=== PATIENT | male | born 1980 | race Caucasian/White ===

== ENCOUNTER 2017-06-20 13:44 | Observation (INO) | payer OTHER ==
[~2017-06-20] VITALS: Ht 177.8 cm; Wt 107.5 kg
--- NOTE | 2017-06-20 14:28 | EMERGENCY ROOM VISIT NOTE ---
History First contact with patient: 14:13 Chief Complaint: HAND PAIN/INJURY Stated Complaint: LEFT HAND INJURY/PAIN-WORK RELATED INJURY History of Present Illness The patient is a 36 year old male who presents to the Emergency Room with complaints of an injury to his left hand that he sustained yesterday at work. 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 He reports that the hardboard grinder was clean. He accidentally cut his left hand over the MCP joint. He washed it, applied bacitracin and then glued the wound shut. The patient noticed some redness and swelling last night. He also reports some tingling. His symptoms have gotten progressively worse and are now spreading up to the wrist. He denies any fever or chills. The patient's tetanus shot is up-to-date. He was seen at [facility]. Imaging was reportedly done. There is concern for gas in the wound. Review of Systems 6 system review performed and negative unless noted in HPI or below Past Medical/Surgical History Medical Problems: (1) Cellulitis of left hand Asthma Family History No known family medical history Social History Smoking Status: Former Smoker Alcohol Use: occasionally Occupation Status: employed Current/Historical Medications No Active Prescriptions or Reported Meds Physical Exam Vital Signs Date Time Temp Pulse Resp B/P (MAP) Pulse Ox O2 Delivery O2 Flow Rate FiO2 06/20/17 17:37 78 20 134/89 100 Room Air 06/20/17 15:41 70 14 134/89 98 Room Air 06/20/17 14:00 36.8 78 18 137/96 97 Room Air Physical Exam VITALS: Vitals are noted on the nurse's note and reviewed by myself. Vital signs stable. GENERAL: 36-year-old male, in no acute distress, nondiaphoretic, well-developed well-nourished. SKIN: There is a 1 cm superficial laceration to the left second MCP joint. There is some purulent drainage noted. Full flexion and extension of the left second digit. Crepitus noted to the dorsum of the hand. Erythema and edema extending to the wrist. No erythematous streaking up the arm. HEAD: Normocephalic atraumatic. MUSCULOSKELETAL: Left upper extremity as noted above. Strength 5/5 throughout. NEURO: Patient was alert and oriented to person place and time. Normal sensation to touch. No focal neurological deficits. Medical Decision & Procedures ER Provider Diagnostic Interpretation: forearm xray Patient Name: LORRI ROD Unit Number: [id number] Dictated: 06/20/171823 Transcribed: 06/20/171823 JA Printed Date/Time: [~ rep prt dt]/[~ rep prt tm] [~ rep ct labl] - [~ rep ct ivnm] [facility] [place] [place] [address] Dictated: 06/20/171823 Transcribed: 06/20/171823 JA Printed Date/Time: [~ rep prt dt]/[~ rep prt tm] [~ rep ct labl] - [~ rep ct ivnm] 1. Soft tissue gas of the dorsal aspect of the left hand extending into the distal left forearm, as shown on prior CT. No soft tissue gas within the proximal left forearm. While this gas could be related to the laceration, the findings are worrisome for a gas-forming infectious process with necrotizing fasciitis. 2. No evidence of osteomyelitis with the left radius or ulna. Electronically signed by: Lázaro Christensen M.D. 06/20/2017 6:31 PM Dictated Date/Time: 06/20/2017 6:24 PM The status of this report is Signed. Draft = Not yet reviewed or approved by Radiologist. Signed = Reviewed and approved by Radiologist. <AttendingPhy></AttendingPhy> <FamilyPhy>No Doctor, Assigned</FamilyPhy> < PrimaryPhy>No Doctor, Assigned</PrimaryPhy> <UnitNumber>[id number]</UnitNumber> <VisitNumber>[id number]</VisitNumber> <PatientName>LORRI ROD</ PatientName> <DateOfBirth>1980</DateOfBirth> <Location>[facility]</Location> < ServiceDate>06/20/17</ServiceDate> <MNE>ESINDI</MNE> <OrderingPhy>Damaris Montenegro P.A.-C.</OrderingPhy> <OrderingPhyMNE>f rep ord dr campos</OrderingPhyMNE> < DictatingPhyMNE>f rep dict dr campos</DictatingPhyMNE> <CCListMNE>f rep ct mne</ CCListMNE> <AdmittingPhyMNE>f pt admit dr campos</AdmittingPhyMNE> <AttendingPhyMNE >f pt attend dr campos</AttendingPhyMNE> <ConsultingPhyMNE>f pt consult dr campos</ConsultingPhyMNE> <FamilyPhyMNE>f pt fam dr campos</FamilyPhyMNE> <OtherPhyMNE>f pt other dr campos</OtherPhyMNE> < PrimaryPhyMNE>f pt prim care dr campos</PrimaryPhyMNE> <ReferringPhyMNE>f pt referring dr campos</ReferringPhyMNE> CT upper extremity IMPRESSION: Extensive soft tissue gas primary along the dorsum of the hand which extends from the wrist through the proximal third and fourth fingers. There is also a small focus of gas along the volar aspect of the fourth MCP joint. No loculated fluid collections to suggest an abscess. No areas of osteomyelitis identified. This gas is greater than expected for a laceration and therefore concerning for an infection from a gas forming organism (necrotizing fasciitis). Findings were discussed the patient's physician fiscal assistant, Evelyn Hernadez, at 4:15 PM on 06/20/2017. Electronically signed by: Reed Calderon M.D. 06/20/2017 4:15 PM Dictated Date/Time: 06/20/2017 4:01 PM The status of this report is Signed. Draft = Not yet reviewed or approved by Radiologist. Signed = Reviewed and approved by Radiologist. <AttendingPhy></AttendingPhy> <FamilyPhy>No Doctor, Assigned</FamilyPhy> < PrimaryPhy>No Doctor, Assigned</PrimaryPhy> <UnitNumber>[id number]</UnitNumber> <VisitNumber>[id number]</VisitNumber> <PatientName>LORRI ROD</ PatientName> <DateOfBirth>1980</DateOfBirth> <Location>[facility]</Location> < ServiceDate>06/20/17</ServiceDate> <MNE>ESINDI</MNE> <OrderingPhy>Evelyn Hernadez PA-C</OrderingPhy> <OrderingPhyMNE>f rep ord dr campos</OrderingPhyMNE> < DictatingPhyMNE>f rep dict dr campos</DictatingPhyMNE> <CCListMNE>f rep ct mne</ CCListMNE> <AdmittingPhyMNE>f pt admit dr campos</AdmittingPhyMNE> <AttendingPhyMNE >f pt attend dr campos</AttendingPhyMNE> <ConsultingPhyMNE>f pt consult dr campos</ConsultingPhyMNE> <FamilyPhyMNE>f pt fam dr campos</FamilyPhyMNE> <OtherPhyMNE>f pt other dr campos</OtherPhyMNE> < PrimaryPhyMNE>f pt prim care dr campos</PrimaryPhyMNE> <ReferringPhyMNE>f pt referring dr campos</ReferringPhyMNE> Laboratory Results Test 06/20/17 14:30 Immature Granulocyte % (Auto) 0.1 % White Blood Count 8.26 K/uL (4.8-10.8) Red Blood Count 5.11 M/uL (4.7-6.1) Hemoglobin 15.3 g/dL (14.0-18.0) Hematocrit 43.9 % (42-52) Mean Corpuscular Volume 85.9 fL (80-100) Mean Corpuscular Hemoglobin 29.9 pg (25-34) Mean Corpuscular Hemoglobin Concent 34.9 g/dl (32-36) Platelet Count 213 K/uL (130-400) Mean Platelet Volume 10.1 fL (7.4-10.4) Neutrophils (%) (Auto) 70.0 % Lymphocytes (%) (Auto) 20.8 % Monocytes (%) (Auto) 8.4 % Eosinophils (%) (Auto) 0.6 % Basophils (%) (Auto) 0.1 % Neutrophils # (Auto) 5.78 K/uL (1.4-6.5) Lymphocytes # (Auto) 1.72 K/uL (1.2-3.4) Monocytes # (Auto) 0.69 K/uL (0.11-0.59) Eosinophils # (Auto) 0.05 K/uL (0-0.5) Basophils # (Auto) 0.01 K/uL (0-0.2) Immature Granulocyte # (Auto) 0.01 K/uL (0.00-0.02) Medications Administered Medications (Trade) Dose Ordered Sig/Jazz Route Start Time Stop Time Status Last Admin Dose Admin Vancomycin HCl 1000 mg/Sodium Chloride 270 ml @ 125 mls/hr NOW STAT IV 06/20/17 14:43 06/20/17 16:52 DC 06/20/17 16:45 125 MLS/HR Clindamycin Phosphate 900 mg/ Dextrose 106 ml @ 100 mls/hr ONE ONCE IV 06/20/17 14:45 06/20/17 15:48 DC 06/20/17 15:57 100 MLS/HR ED Course Patient was seen and examined Vital signs including blood pressure were reviewed medications list was verified with patient Labs were obtained, and a saline lock was established The patient was given vancomycin and clindamycin. The case was discussed with my supervising physician who is in agreement with the plan. I spoke with Dr. Montenegro from orthopedics. His physician fiscal assistant, Bashir, evaluated the patient. The patient was also seen by Dr. Montenegro. The patient was also seen and evaluated by my supervising physician who is in agreement with my plan. Dr. Montenegro did not have any further treatment at this time. The patient was also seen and evaluated by the [facility] hospitalist group. They agree to observe the patient overnight for close monitoring and continued IV antibiotics. This was discussed with the patient. He is in agreement. Medical Decision Differential diagnosis: Wound infection, cellulitis, abscess, tenosynovitis, osteomyelitis This patient is a 36-year-old male that presents to the emergency department with complaints of left hand swelling, pain and redness after sustaining an injury at work yesterday. The laceration sustained to the hand was fairly insignificant. It was less than 1 inch in diameter. It was located over the second MCP joint. The patient was first evaluated at [facility]. Plain films were performed concerning for subcutaneous gas. I ordered blood work and a CT scan here in the emergency department. There is no leukocytosis. The imaging however is very concerning for subcutaneous emphysema extending proximally towards the wrist and over towards the fourth metacarpal. I am highly suspicious of necrotizing fasciitis. This was discussed at length with the radiologist in addition to orthopedics. The decision was made to observe the patient overnight. He will continue IV antibiotics. He will also undergo an infectious disease consult in the morning. If this does indeed progress, he will likely need surgical intervention. This was discussed with the patient. He is comfortable with the treatment plan. This chart was completed in part utilizing [employer] Speech Voice Recognition software. Attempts were made to minimize the grammatical errors, random word insertions, pronoun errors and incomplete sentences. Any formal questions or concerns about the content, text or information contained within the body of this dictation should be directly addressed to the provider for clarification. Medication Reconcilliation Current Medication List: was personally reviewed by me Blood Pressure Screening Patient's blood pressure: Elevated blood pressure Blood pressure disposition: Did not require urgent referral Consults Consulting Physician: Dr. Montenegro-orthopedics, Dr. Cummings [facility] hospitalist Impression Primary Impression: Cellulitis of left hand Critical Care I have personally spent greater than 30 minutes of critical care time in the direct management of this patient. This includes bedside care, interpretation of diagnostic studies, and testing, discussion with consultants, patient, and family members, and other required patient management activities. This 30 minutes is in excess of all separately billable procedures. Departure Information Prescriptions No Active Prescriptions or Reported Meds Referrals No Doctor, Assigned (PCP) Patient Instructions My [facility]
[2017-06-20] MEDS ORDERED: VANCOMYCIN INJ 1,000 MG in SODIUM CHLORIDE 0.9% 250ML 250 ML IV STA (14:43)
[2017-06-20] MEDS ORDERED: CLINDAMYCIN IV 900 MG in DEXTROSE 5% 100ML 100 ML IV ONE (14:45)
[2017-06-20 14:53] LABS: BASO % 0.1 %; BASO ABS # 0.01 K/uL (0-0.2); COMPLETE YES; EOS % 0.6 %; HEMATOCRIT 43.9 % (42-52); IG% 0.1 %; LYMPH % 20.8 %; LYMPH ABS # 1.72 K/uL (1.2-3.4); MEAN CELL VOLUME 85.9 fL (80-100); MEAN CORPUSCULAR HEMOGLOBIN 29.9 pg (25-34); MEAN CORPUSCULAR HGB CONC 34.9 g/dl (32-36); MEAN PLATELET VOLUME 10.1 fL (7.4-10.4); MONO % 8.4 %; PLATELET COUNT 213 K/uL (130-400); RED BLOOD COUNT 5.11 M/uL (4.7-6.1); WHITE BLOOD COUNT 8.26 K/uL (4.8-10.8)
[2017-06-20 15:10] LABS: BUN/CREATININE RATIO 14.9 (10-20); CALCIUM 10.2 mg/dl (8.5-10.1); CREATININE 1.18 mg/dl (0.60-1.40); POTASSIUM 3.8 mmol/L (3.5-5.1)
--- NOTE | 2017-06-20 16:16 | DIAGNOSTIC IMAGING REPORT ---
LEFT HAND CT WITH INTRAVENOUS CONTRAST CLINICAL HISTORY: L hand swelling cut on 2nd MCP joint COMPARISON STUDY: None. FINDINGS: Extensive soft tissue gas along the dorsum of the hand which extends along the proximal third and fourth fingers as well as into the dorsum of the wrist. Focal area of subcutaneous edema at the dorsum of the second MCP joint which favors the site of laceration. Tiny focus of gas along the volar aspect of the fourth MCP joint. No loculated fluid collections to suggest an abscess at this time. No areas of cortical destruction to suggest osteomyelitis. No fracture or dislocation within the hand. Gas also surrounds the dorsal tendons sheaths. IMPRESSION: Extensive soft tissue gas primary along the dorsum of the hand which extends from the wrist through the proximal third and fourth fingers. There is also a small focus of gas along the volar aspect of the fourth MCP joint. No loculated fluid collections to suggest an abscess. No areas of osteomyelitis identified. This gas is greater than expected for a laceration and therefore concerning for an infection from a gas forming organism (necrotizing fasciitis). Findings were discussed the patient's physician financial assistant, Evelyn Henradez, at 4:15 PM on 06/20/2017. Electronically signed by: Reed Calderon M.D. 06/20/2017 4:15 PM Dictated Date/Time: 06/20/2017 4:01 PM
--- NOTE | 2017-06-20 17:55 | EMERGENCY ROOM VISIT NOTE ---
ED Visit Note First contact with patient: 14:13 Patient seen and examined at bedside with physician cafeteria assistant. Patient with crepitus covered almost the entire dorsum of his left hand. Laceration noted at the dorsal aspect of the first MCP. Patient with slightly decreased range of motion along the 2nd/3rd digit secondary to pain, no decreased range of motion of the wrist or elbow. No other pain, crepitus, or edema noted of the patient's forearm. Discussed labs with the physician cafeteria assistant as well as need for IV antibiotics and admission. Physician cafeteria assistant has spoken with [facility] call, Dr. Montenegro, as well as with the hospitalist for admission for close monitoring. I do not suspect a flexor tenosynovitis, concern for worsening infection despite lack of over erythema or cellulitis on the dorsal aspect, most concerning is the extension of the crepitus over the dorsum of the hand, and patient's subjective altered sensation to the forearm ipsilaterally. Please refer to the physician cafeteria assistant note for her conversation with orthopedics. They advised her they will be down to evaluate the patient in the emergency room.
[2017-06-20] MEDS ORDERED: ONDANSETRON INJ 2 MG/ML 2 ML VIAL IV PRN (18:15)
[2017-06-20] MEDS ORDERED: ACETAMINOPHEN 325 MG TAB PO PRN (18:15)
--- NOTE | 2017-06-20 18:32 | DIAGNOSTIC IMAGING REPORT ---
L FOREARM 2 VIEWS ROUTINE CLINICAL HISTORY: Evaluate for necrotizing fasciitis. COMPARISON: CT of the left hand June 20, 2017 at 4:08 PM. FINDINGS: There is soft tissue gas along the distal medial shaft of the left ulna and dorsal aspect of the left hand. Similar findings were shown on CT from earlier today. There is no soft tissue gas within the proximal to mid left forearm. No evidence of osteomyelitis is identified within the left radius or ulna. There is no evidence for left elbow joint effusion. IMPRESSION: 1. Soft tissue gas of the dorsal aspect of the left hand extending into the distal left forearm, as shown on prior CT. No soft tissue gas within the proximal left forearm. While this gas could be related to the laceration, the findings are worrisome for a gas-forming infectious process with necrotizing fasciitis. 2. No evidence of osteomyelitis with the left radius or ulna. Electronically signed by: Lázaro Christensen M.D. 06/20/2017 6:31 PM Dictated Date/Time: 06/20/2017 6:24 PM
--- NOTE | 2017-06-20 18:58 | History and Physical ---
History & Physical Date & Time of Service: Jun 20, 2017 at 18:21 Chief Complaint: Left Hand Injury/Pain-Work Related Injury Primary Care Physician: No Doctor, Assigned History of Present Illness Source: patient, hospital records This is a 36yo M with no known PMH who presents with a L hand injury sustained at work yesterday. 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 He then applied bacitracin and glued wound shut. This morning, patient noticed worsening redness, swelling and some purulent drainage. Patient cleaned the wound and went to work. Received a tdap immunization. Later in the day, started to have more significant pain with flexion of his fingers and decided to come to ER for evaluation. Describes pain as a tight pulling sensation and states that it feels like there is a "jelly packet" inside the dorsum of his hand. Endorses a crackling sound with movement. Denies any numbness/tingling of L hand or fingers. Denies any fever, chills, headache, CP, SOB, abd pain, nausea, vomiting, LE swelling. Family History Family history is non-contributory. Social History Smoking Status: Former Smoker Alcohol Use: socially (endorses 2-3 drinks a week) Housing status: lives with family Occupational Status: employed Allergies Coded Allergies: Aspirin (Unverified Allergy, Severe, ., 06/20/17) Penicillins (Unverified Allergy, Severe, "ALLERGIC REACTION", 06/20/17) Home Medications No Active Prescriptions or Reported Meds Review of Systems Ten systems reviewed and negative except as noted in the HPI. Physical Exam Vital Signs Date Time Temp Pulse Resp B/P (MAP) Pulse Ox O2 Delivery O2 Flow Rate FiO2 06/20/17 17:37 78 20 134/89 100 Room Air 06/20/17 15:41 70 14 134/89 98 Room Air 06/20/17 14:00 36.8 78 18 137/96 97 Room Air General Appearance: WD/WN, no apparent distress Head: normocephalic, atraumatic Eyes: normal inspection, PERRL, sclerae normal (conjunctiva normal ) ENT: normal ENT inspection, hearing grossly normal, pharynx normal (moist mucous membranes ) Neck: supple, thyroid normal, trachea midline Respiratory/Chest: chest non-tender, lungs clear, normal breath sounds, no respiratory distress, no accessory muscle use Cardiovascular: regular rate, rhythm, no murmur, normal peripheral pulses Abdomen/GI: non tender, soft, no organomegaly Back: normal inspection Extremities/Musculoskelatal: no calf tenderness, no pedal edema, + pertinent finding (Dorsum of L hand with erythema and edema. Presence of a 2cm laceration without purulent drainage. TTP along 2nd-3rd MCP with associated crepitus. Sensation and motor function intact. ) Neurologic/Psych: no motor/sensory deficits, alert, normal mood/affect, oriented x 3 Skin: normal color, warm/dry Diagnostics Laboratory Results Results Past 24 Hours Test 06/20/17 14:30 Range/Units White Blood Count 8.26 4.8-10.8 K/uL Red Blood Count 5.11 4.7-6.1 M/uL Hemoglobin 15.3 14.0-18.0 g/dL Hematocrit 43.9 42-52 % Mean Corpuscular Volume 85.9 80-100 fL Mean Corpuscular Hemoglobin 29.9 25-34 pg Mean Corpuscular Hemoglobin Concent 34.9 32-36 g/dl Platelet Count 213 130-400 K/uL Mean Platelet Volume 10.1 7.4-10.4 fL Neutrophils (%) (Auto) 70.0 % Lymphocytes (%) (Auto) 20.8 % Monocytes (%) (Auto) 8.4 % Eosinophils (%) (Auto) 0.6 % Basophils (%) (Auto) 0.1 % Neutrophils # (Auto) 5.78 1.4-6.5 K/uL Lymphocytes # (Auto) 1.72 1.2-3.4 K/uL Monocytes # (Auto) 0.69 0.11-0.59 K/uL Eosinophils # (Auto) 0.05 0-0.5 K/uL Basophils # (Auto) 0.01 0-0.2 K/uL RDW Standard Deviation 40.1 36.4-46.3 fL RDW Coefficient of Variation 12.7 11.5-14.5 % Immature Granulocyte % (Auto) 0.1 % Immature Granulocyte # (Auto) 0.01 0.00-0.02 K/uL Sodium Level 138 136-145 mmol/L Potassium Level 3.8 3.5-5.1 mmol/L Chloride Level 104 98-107 mmol/L Carbon Dioxide Level 31 21-32 mmol/L Anion Gap 3.0 3-11 mmol/L Blood Urea Nitrogen 18 7-18 mg/dl Creatinine 1.18 0.60-1.40 mg/dl Est Creatinine Clear Calc Drug Dose 105.2 ml/min Estimated GFR () 90.8 Estimated GFR (Non- 78.4 BUN/Creatinine Ratio 14.9 10-20 Random Glucose 112 70-99 mg/dl Calcium Level 10.2 8.5-10.1 mg/dl Microbiology Results 06/20/17 Blood Culture, Received Pending 06/20/17 Blood Culture, Received Pending Diagnostic Radiology Left hand CT: IMPRESSION: Extensive soft tissue gas primary along the dorsum of the hand which extends from the wrist through the proximal third and fourth fingers. There is also a small focus of gas along the volar aspect of the fourth MCP joint. No loculated fluid collections to suggest an abscess. No areas of osteomyelitis identified. This gas is greater than expected for a laceration and therefore concerning for an infection from a gas forming organism (necrotizing fasciitis). Impression Assessment and Plan This is a 36yo M with no known PMH who presents with a L hand injury sustained at work yesterday. Left hand cellulitis -Warmth, swelling, crepitus -Concern for necrotizing fasciitis -Left hand CT with extensive soft tissue gas primarily along dorsum of the hand extending from wrist through the proximal third and fourth fingers. No loculated fluid collection to suggest abscess, no osteomyelitis -IV vanc and clinda initiated in ER. Will continue -Possible PCN allergy but is unsure of the reaction -Ortho consulted to assess the need for surgical intervention -NPO for now -ID consulted for tomorrow DVT Ppx: Rayshawn ripmanjeet Code status: FULL PCP: None. Would like to establish with [facility] Dispo: [facility] observation status for now. Plan to return home once medically stable Patient seen in collaboration with Dr. Cummings. Please see addendum. 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 On imaging: Extensive soft tissue gas along the dorsum of the hand which extends along the proximal third and fourth fingers as well as into the dorsum of the wrist. Focal area of subcutaneous edema at the dorsum of the second MCP joint which favors the site of laceration. Tiny focus of gas along the volar aspect of the fourth MCP joint.Soft tissue gas of the dorsal aspect of the left hand extending into the distal left forearm Blood cultures drawn in the ED Patient receiving IV Vancomycin and Clindamycin As per orthopedics evaluation, orthopedic service recommend discharge home with oral antibiotics, Augmentin However given radiographic impressions of soft tissue gas, will have patient observed overnight and continue IV antibiotics. Patient to be reassessed tomorrow before planning for discharge Level of Care Med/Surg Resuscitation Status FULL RESUSCITATION VTE Prophylaxis VTE Risk Assessment Done? Y/N: Yes Risk Level: Low Given or contraindicated: Annalisa Lovett Social Service Consult None Apply
--- NOTE | 2017-06-20 19:06 | Orthopedic Consultation ---
Orthopedic Consultation Date of Consultation: Jun 20, 2017. Attending Physician: Reason for Consultation: Left hand laceration History of Present Illness Trev is a 36y/o male, RHD, who suffered a laceration yesterday from a newly opened blade for a precision grinder external. He washed it out, applied some antibiotic ointment, and glued it with gorilla glue. This morning he noticed some discomfort and swelling with his hand, also had a pressure feeling into his forearm. He was seen [facility] where he had xrays and was referred to the ER. A ct scan was obtained of his hand showing soft tissue gas and we were consulted for further orthopedic evaluation. He has some dorsal hand pain. No pain in his arm at this time. No fever/chills. Does not feel ill. He did receive a dose of IV antibiotics. No other complaints. PMH, including medications, allergies, family, social history was reviewed and please refer to [facility] Past Medical/Surgical History asthma Social History Smoking Status: Former Smoker Occupation Status: employed Allergies Coded Allergies: Aspirin (Unverified Allergy, Severe, ., 06/20/17) Penicillins (Unverified Allergy, Severe, "ALLERGIC REACTION", 06/20/17) Home Medications No Active Prescriptions or Reported Meds Current Inpatient Medications Current Inpatient Medications Medications (Trade) Dose Ordered Sig/Jazz Route Start Time Stop Time Status Last Admin Dose Admin Miscellaneous Information (Pharmacy Consult) 1 ea NOW STAT N/A 06/20/17 18:06 06/20/17 18:07 UNV Acetaminophen (Tylenol Tab) 650 mg Q4H PRN PO 06/20/17 18:15 07/20/17 18:14 Ondansetron HCl (Zofran Inj) 4 mg Q6H PRN IV 06/20/17 18:15 07/20/17 18:14 Physical Exam Date Time Temp Pulse Resp B/P (MAP) Pulse Ox O2 Delivery O2 Flow Rate FiO2 06/20/17 17:37 78 20 134/89 100 Room Air 06/20/17 15:41 70 14 134/89 98 Room Air 06/20/17 14:00 36.8 78 18 137/96 97 Room Air He is a well developed well nourished male in no distress. He has a laceration on the dorsal aspect of his hand over the 2nd mcp joint, measuring approx 1.5 cm in length. Slight bloody drainage but no pus. Some dorsal hand swelling and crepitation. No redness or streaking. He has no tenderness of his forearm. He is able to flex/ext his fingers appropriately. extensor tendon is intact. NVI. CT was reviewed which demonstrates some soft tissue gas dorsally in the hand Laboratory Results Last 24 Hours Test 06/20/17 14:30 White Blood Count 8.26 K/uL Red Blood Count 5.11 M/uL Hemoglobin 15.3 g/dL Hematocrit 43.9 % Mean Corpuscular Volume 85.9 fL Mean Corpuscular Hemoglobin 29.9 pg Mean Corpuscular Hemoglobin Concent 34.9 g/dl Platelet Count 213 K/uL Mean Platelet Volume 10.1 fL Neutrophils (%) (Auto) 70.0 % Lymphocytes (%) (Auto) 20.8 % Monocytes (%) (Auto) 8.4 % Eosinophils (%) (Auto) 0.6 % Basophils (%) (Auto) 0.1 % Neutrophils # (Auto) 5.78 K/uL Lymphocytes # (Auto) 1.72 K/uL Monocytes # (Auto) 0.69 K/uL Eosinophils # (Auto) 0.05 K/uL Basophils # (Auto) 0.01 K/uL RDW Standard Deviation 40.1 fL RDW Coefficient of Variation 12.7 % Immature Granulocyte % (Auto) 0.1 % Immature Granulocyte # (Auto) 0.01 K/uL Sodium Level 138 mmol/L Potassium Level 3.8 mmol/L Chloride Level 104 mmol/L Carbon Dioxide Level 31 mmol/L Anion Gap 3.0 mmol/L Blood Urea Nitrogen 18 mg/dl Creatinine 1.18 mg/dl Est Creatinine Clear Calc Drug Dose 105.2 ml/min Estimated GFR () 90.8 Estimated GFR (Non- 78.4 BUN/Creatinine Ratio 14.9 Random Glucose 112 mg/dl Calcium Level 10.2 mg/dl Assessment & Plan Assessment: Left hand laceration Plan: He was seen and examined by Dr. Montenegro today as well. There was concern on the ct scan of necrotizing fascitis. Clinically his hand does not appear concerning at this point in time. Also, there was no air in the mcp joint. He has this laceration and some swelling, but no pus. It does not appear to be deep into the mcp joint. He received a dose of IV antibiotics in the ED. We recommended discharge home with oral antibiotics, augmentin. As well as soaking his wound 3 times a day. We did tell him in the future not to super glue his wounds. Certainly he should come back to the ER for worsening symptoms, increased redness, pain, swelling, or pus. He can follow up with orthopedics as needed as a outpatient.
[2017-06-20 20:18] LABS: HEMATOCRIT 41.2 % (42-52); MEAN CELL VOLUME 85.8 fL (80-100); MEAN CORPUSCULAR HEMOGLOBIN 29.8 pg (25-34); MEAN CORPUSCULAR HGB CONC 34.7 g/dl (32-36); MEAN PLATELET VOLUME 10.3 fL (7.4-10.4); PLATELET COUNT 189 K/uL (130-400); WHITE BLOOD COUNT 7.64 K/uL (4.8-10.8)
[2017-06-20 20:34] LABS: BUN/CREATININE RATIO 15.8 (10-20); CALCIUM 9.8 mg/dl (8.5-10.1); POTASSIUM 3.6 mmol/L (3.5-5.1)
[2017-06-20] MEDS ORDERED: IV FLUIDS COMPLETED PRN (20:45)
[2017-06-20 21:15] VITALS: BP 134/88; PULSE 74; TEMP 36.8; O2SAT 98; Ht 177.8 cm; Wt 107.5 kg
[2017-06-20] MEDS ORDERED: CLINDAMYCIN CONSULT ACTIVE PRN ×2 (21:19)
[2017-06-20] MEDS ORDERED: VANCOMYCIN CONSULT ACTIVE PRN (21:30)
[2017-06-20 22:42] VITALS: BP 147/90; PULSE 66; TEMP 36.7; O2SAT 97
[2017-06-21] MEDS: CLINDAMYCIN IV 900 MG in DEXTROSE 5% 50ML 44 ML IV SCH ×4 (00:14→23:41)
--- NOTE | 2017-06-21 00:15 | ORTHOPEDIC CONSULTATION ---
DATE OF CONSULTATION: 06/20/2017 ADDENDUM This is an addendum to an orthopedic consultation done by ZACH De La Cruz. I saw Mr. Chi with Jarred Henderson, my PA, today. In short, this is a 36-year-old gentleman who sustained a laceration to his left hand, just proximal to the MP joint, yesterday, a little over 24 hours ago. He washed it up and put some Gorilla Glu on it. He has had some increased pain and presented to the ER. They got a CT scan which showed some air in the soft tissues. His exam is very benign. He has got some mild swelling. He has got full range of motion and there is no redness. There is some mild swelling but that is it. There is also some slight crepitance to the tissues. No real warmth. No signs of even cellulitis. There is a slight bit of serous drainage. On CT scan, there is a small amount of air in the tissues proximal to the laceration. There are no signs of air in the joint itself to suggest a contamination of the MP joint. Based on his exam, I would have never ordered a CT scan in the first place. This is a very benign appearing laceration and I do not think there is any concern for severe infection or necrotizing fasciitis. We will give him some antibiotics, and if things get worse, he will need to follow up. I do not think he needs to be admitted to the hospital to be observed. Once again, his exam is very benign in appearance and I do not think this warrants admission and observation. Certainly, if things get worse, he should return for repeat evaluation. ADEN
--- NOTE | 2017-06-21 00:19 | Pharmacy Progress Note ---
Pharmacy Antibiotic Consult Date of Service: Jun 21, 2017. Pharmacy Dosing Scope * Pharmacy is consulted to initiate Vanocmycin IV dosing therapy, order appropriate labs and adjust drug dose/frequency. Subjective * The patient is a 36 year old male admitted on Jun 20, 2017 at 18:06. Objective Height (Feet): 5 Height (Inches): 10.00 Weight (Kilograms): 107.500 Lab Results (24hrs): Test 06/20/17 14:30 06/20/17 20:06 White Blood Count 8.26 K/uL (4.8-10.8) 7.64 K/uL (4.8-10.8) Red Blood Count 5.11 M/uL (4.7-6.1) 4.80 M/uL (4.7-6.1) Hemoglobin 15.3 g/dL (14.0-18.0) 14.3 g/dL (14.0-18.0) Hematocrit 43.9 % (42-52) 41.2 % (42-52) Mean Corpuscular Volume 85.9 fL (80-100) 85.8 fL (80-100) Mean Corpuscular Hemoglobin 29.9 pg (25-34) 29.8 pg (25-34) Mean Corpuscular Hemoglobin Concent 34.9 g/dl (32-36) 34.7 g/dl (32-36) Platelet Count 213 K/uL (130-400) 189 K/uL (130-400) Mean Platelet Volume 10.1 fL (7.4-10.4) 10.3 fL (7.4-10.4) Neutrophils (%) (Auto) 70.0 % Lymphocytes (%) (Auto) 20.8 % Monocytes (%) (Auto) 8.4 % Eosinophils (%) (Auto) 0.6 % Basophils (%) (Auto) 0.1 % Neutrophils # (Auto) 5.78 K/uL (1.4-6.5) Lymphocytes # (Auto) 1.72 K/uL (1.2-3.4) Monocytes # (Auto) 0.69 K/uL (0.11-0.59) Eosinophils # (Auto) 0.05 K/uL (0-0.5) Basophils # (Auto) 0.01 K/uL (0-0.2) RDW Standard Deviation 40.1 fL (36.4-46.3) 39.7 fL (36.4-46.3) RDW Coefficient of Variation 12.7 % (11.5-14.5) 12.7 % (11.5-14.5) Immature Granulocyte % (Auto) 0.1 % Immature Granulocyte # (Auto) 0.01 K/uL (0.00-0.02) Sodium Level 138 mmol/L (136-145) 138 mmol/L (136-145) Potassium Level 3.8 mmol/L (3.5-5.1) 3.6 mmol/L (3.5-5.1) Chloride Level 104 mmol/L (98-107) 104 mmol/L (98-107) Carbon Dioxide Level 31 mmol/L (21-32) 25 mmol/L (21-32) Anion Gap 3.0 mmol/L (3-11) 9.0 mmol/L (3-11) Blood Urea Nitrogen 18 mg/dl (7-18) 16 mg/dl (7-18) Creatinine 1.18 mg/dl (0.60-1.40) 1.00 mg/dl (0.60-1.40) Est Creatinine Clear Calc Drug Dose 105.2 ml/min 124.2 ml/min Estimated GFR () 90.8 110.9 Estimated GFR (Non- 78.4 95.7 BUN/Creatinine Ratio 14.9 (10-20) 15.8 (10-20) Random Glucose 112 mg/dl (70-99) 88 mg/dl (70-99) Calcium Level 10.2 mg/dl (8.5-10.1) 9.8 mg/dl (8.5-10.1) Micro Results: * Blood cultures are pending Recent Pertinent Medications * Pt is also receiving Cleocin 900mg IV every 8 hours. Assessment & Plan * Pt is a 36 y/o male admitted S/P left hand injury, being treated for cellulitis with Vanco and Cleocin IV. * He received Vanco 1gm IV while in the ED (~9.3mg/kg), will continue Vanco at 1750mg (~16.2mg/kg) IV every 8 hours. * Goal peak level estimate: between 30-40 mcg/mL. * Goal trough level estimate: between 16-19 mcg/mL. * Trough level is ordered for 06/21/17 at 1730 just prior to the 4th dose.. Pharmacy will continue to follow and will adjust dose/frequency as necessary. Thank you
[2017-06-21] MEDS: VANCOMYCIN INJ 1,750 MG in SODIUM CHLORIDE 0.9% 500ML 500 ML IV SCH ×3 (01:58→18:43)
[2017-06-21 07:41] VITALS: BP 140/84; PULSE 68; TEMP 36.7; O2SAT 97
--- NOTE | 2017-06-21 08:09 | PROGRESS NOTE ---
DATE: 06/21/2017 SUBJECTIVE: This is a followup of his left hand laceration and possible infection. The patient is a 36-year-old gentleman who was admitted last evening through the ER for left hand cellulitis with concerns of necrotizing fasciitis. Symptoms are pretty much unchanged. Feels like his hands are little bit more sore this morning than it was. Denies any fevers. No other complaints. OBJECTIVE: VITAL SIGNS: Temperature is 36.7. Vital signs stable. EXTREMITIES: Left hand reveals about 1.5 cm transverse laceration near the MP joint of his index finger. He can fully extend and flex his finger, but it is slightly painful. He does have some mild swelling and maybe just a little bit redness in this area. There is a scab over the area. There is no pus expressible or visible. I do not detect any crepitance in his soft tissues. LABORATORY DATA: White cell count normal at 7.64. I did order a sed rate and C-reactive protein this morning. ASSESSMENT: A 36-year-old male with left hand laceration with may be a mild low level cellulitis. There are no signs of necrotizing fasciitis in this gentleman. The area was CT scanned and it is a little difficult for me to interpret, but I cannot appreciate any on exam today. It does seem a little bit more swollen today but nothing too concerning. There is no pus or indication for surgical treatment. There are no signs of joint involvement over the laceration clinically. PLAN: This patient has been admitted to the hospital by the medicine service. I had recommended outpatient treatment as I do not think he needed IV management. There are no signs of necrotizing fasciitis in my opinion. We will check a sed rate and C-reactive protein. I am going to put him on some Toradol for the swelling and discomfort, I think that will help him markedly. I would recommend continued antibiotics. I think oral antibiotics would probably be adequate for this gentleman, although he does have a PENICILLIN allergy, which makes it little bit more difficult. We will start him on some soaks 10 minutes 3 times a day and any orthopedic questions can be directed to me at [phone]. I will follow him while he is in the hospital. I think this is something that can be managed as an outpatient and if things get worse, he could come back. I would recommend probably clindamycin and Bactrim if he is discharged. Once again orthopedic questions can be directed to me at [phone].
[2017-06-21] MEDS: KETOROLAC TROMETHAMINE 30 MG/ML VIAL IV. SCH ×3 (08:17→20:14)
--- NOTE | 2017-06-21 10:25 | Progress Note ---
Medicine Progress Note Date & Time of Visit: Jun 21, 2017 at 10:19. Subjective seen resting in bedside chair, comfortable states his left hand feels a little more sore than yesterday wrist pain has resolved, no arm pain can move all fingers normally no fever/chills denies headache, nausea, dizziness, chest pain, dyspnea, palpitations no other symptoms Objective Last 8 Hrs Date Time Temp Pulse Resp B/P (MAP) Pulse Ox O2 Delivery O2 Flow Rate FiO2 06/21/17 07:41 36.7 68 18 140/84 (102) 97 Room Air Physical Exam: General- oriented x 3, not in distress Head- atraumatic Eyes- EOMI, anicteric ENT- oropharynx clear Neck- supple, no JVD, no adenopathy Lungs- clear breath sounds bilaterally, no rales/wheezes Heart- regular rhythm; no murmur, normal rate Abdomen- normal bowel sounds, soft, nontender Extremities- Left Hand: (+) ~1cm wound on the 2nd MTP, scabbed, with surrounding mild edema, erythema, warmth, tenderness medial 1/2 of the hand dorsum, full ROM of fingers, wrist forearm normal no pretibial edema, no calf tenderness; peripheral pulses intact Neuro- alert, oriented x 3;no gross focal deficits Skin- warm & dry Laboratory Results: Last 24 Hours Test 06/20/17 14:30 06/20/17 20:06 06/21/17 07:42 White Blood Count 8.26 K/uL 7.64 K/uL Red Blood Count 5.11 M/uL 4.80 M/uL Hemoglobin 15.3 g/dL 14.3 g/dL Hematocrit 43.9 % 41.2 % Mean Corpuscular Volume 85.9 fL 85.8 fL Mean Corpuscular Hemoglobin 29.9 pg 29.8 pg Mean Corpuscular Hemoglobin Concent 34.9 g/dl 34.7 g/dl Platelet Count 213 K/uL 189 K/uL Mean Platelet Volume 10.1 fL 10.3 fL Neutrophils (%) (Auto) 70.0 % Lymphocytes (%) (Auto) 20.8 % Monocytes (%) (Auto) 8.4 % Eosinophils (%) (Auto) 0.6 % Basophils (%) (Auto) 0.1 % Neutrophils # (Auto) 5.78 K/uL Lymphocytes # (Auto) 1.72 K/uL Monocytes # (Auto) 0.69 K/uL Eosinophils # (Auto) 0.05 K/uL Basophils # (Auto) 0.01 K/uL RDW Standard Deviation 40.1 fL 39.7 fL RDW Coefficient of Variation 12.7 % 12.7 % Immature Granulocyte % (Auto) 0.1 % Immature Granulocyte # (Auto) 0.01 K/uL Sodium Level 138 mmol/L 138 mmol/L Potassium Level 3.8 mmol/L 3.6 mmol/L Chloride Level 104 mmol/L 104 mmol/L Carbon Dioxide Level 31 mmol/L 25 mmol/L Anion Gap 3.0 mmol/L 9.0 mmol/L Blood Urea Nitrogen 18 mg/dl 16 mg/dl Creatinine 1.18 mg/dl 1.00 mg/dl Est Creatinine Clear Calc Drug Dose 105.2 ml/min 124.2 ml/min Estimated GFR () 90.8 110.9 Estimated GFR (Non- 78.4 95.7 BUN/Creatinine Ratio 14.9 15.8 Random Glucose 112 mg/dl 88 mg/dl Calcium Level 10.2 mg/dl 9.8 mg/dl Erythrocyte Sedimentation Rate 9 mm/hr C-Reactive Protein < 0.29 mg/dl Date/Time Source Procedure Growth Status 06/20/17 15:17 Blood Blood Culture Pending Received 06/20/17 15:11 Blood Blood Culture Pending Received Assessment & Plan LEFT HAND CELLULITIS, 2ND MTP WOUND - CT of the extremity: possible necrotizing fasciitis - Dr. Montenegro- Ortho consulted impression is hand cellulitis, necrotizing fasciitis unlikely - afebrile CBC pending ESR, CRP normal Blood culture pending - hand is a little more "sore" today add Aztreonam IV continue Vanco + Clinda Day 2 monitor closely - Toradol PRN for pain - appreciate Dr. Montenegro's recommendations DVT Proph ambulation encouraged , SCDs Full Code Disposition anticipate d/c tomorrow if left hand improves further Current Inpatient Medications: Current Inpatient Medications Medications (Trade) Dose Ordered Sig/Jazz Route Start Time Stop Time Status Last Admin Dose Admin Clindamycin Phosphate (Consult) 1 ea DAILY PRN N/A 06/20/17 21:19 07/20/17 21:18 Acetaminophen (Tylenol Tab) 650 mg Q4H PRN PO 06/20/17 18:15 07/20/17 18:14 Ondansetron HCl (Zofran Inj) 4 mg Q6H PRN IV 06/20/17 18:15 07/20/17 18:14 Miscellaneous (Iv Fluids Completed) 1 ea PRN PRN N/A 06/20/17 20:45 06/20/18 20:44 Clindamycin Phosphate 900 mg/ Dextrose 50 ml @ 100 mls/hr Q8H IV 06/21/17 00:00 07/01/17 00:00 06/21/17 08:17 100 MLS/HR Vancomycin HCl 1750 mg/Sodium Chloride 535 ml @ 200 mls/hr Q8H IV 06/21/17 02:00 07/01/17 01:59 06/21/17 09:11 200 MLS/HR Vancomycin HCl (Consult) 1 ea UD PRN N/A 06/20/17 21:30 07/20/17 21:29 Ketorolac Tromethamine (Toradol Inj) 30 mg Q6H IV. 06/21/17 08:00 06/26/17 07:59 06/21/17 08:17 30 MG
[2017-06-21] MEDS: SODIUM CHLORIDE 0.9% 1000ML 1,000 ML IV SCH (10:30)
[2017-06-21] MEDS ORDERED: AZTREONAM CONSULT ACTIVE PRN ×2 (10:38)
[2017-06-21 11:09] LABS: BASO % 0.2 %; BASO ABS # 0.01 K/uL (0-0.2); COMPLETE YES; EOS % 0.8 %; HEMATOCRIT 41.2 % (42-52); IG% 0.2 %; LYMPH % 27.4 %; LYMPH ABS # 1.45 K/uL (1.2-3.4); MEAN CELL VOLUME 86.4 fL (80-100); MEAN CORPUSCULAR HEMOGLOBIN 29.6 pg (25-34); MEAN CORPUSCULAR HGB CONC 34.2 g/dl (32-36); MEAN PLATELET VOLUME 10.2 fL (7.4-10.4); NEUT % 58.4 %; PLATELET COUNT 190 K/uL (130-400); RED BLOOD COUNT 4.77 M/uL (4.7-6.1)
[2017-06-21 11:36] LABS: BUN/CREATININE RATIO 13.9 (10-20); CALCIUM 9.4 mg/dl (8.5-10.1); POTASSIUM 4.2 mmol/L (3.5-5.1)
[2017-06-21] MEDS: LACTOBACILLUS ACIDOPHILUS (FLORANEX) TAB PO SCH ×2 (12:38→17:22)
[2017-06-21] MEDS: AZTREONAM IV 1,000 MG in DEXTROSE 5% 100ML IV SCH ×2 (12:38→22:33)
--- NOTE | 2017-06-21 13:34 | Medical Consult ---
Consultation Date of Consultation: Jun 21, 2017. Attending Physician: Quinton Giordano MD Reason for Consultation: Antibiotics for cellulitis History of Present Illness 36-year-old male with history of asthma but otherwise in good health, suffered deep laceration to the dorsum of his left hand from a workplace injury. He then developed progressively worsening pain, swelling, difficulty moving fingers. He came to the emergency department where he was found to have evidence of crepitus on examination. CT scan, read by me, showed the presence of soft tissue gas. Patient has been treated with combination of vancomycin and Zosyn with some improvement. Still complaining of pain, 4/10 in intensity. No fever. No purulent drainage. Tolerating antibiotics without apparent difficulty. Past Medical/Surgical History PMH/PSH: Asthma Family History Noncontributory Social History Smoking Status: Former Smoker Alcohol Use: socially (endorses 2-3 drinks a week) Occupation Status: employed Allergies Coded Allergies: Aspirin (Unverified Allergy, Severe, SOB-long time ago, CAN TAKE IBUPROFEN , 06/21/17) BEE STING (Verified Allergy, Severe, anaphylaxis, 06/20/17) Per patient report Mushroom (Verified Allergy, Severe, diarrhea, 06/20/17) Per patient report Penicillins (Unverified Allergy, Severe, "ALLERGIC REACTION", 06/20/17) Current Inpatient Medications Current Inpatient Medications Medications (Trade) Dose Ordered Sig/Jazz Route Start Time Stop Time Status Last Admin Dose Admin Clindamycin Phosphate (Consult) 1 ea DAILY PRN N/A 06/20/17 21:19 07/20/17 21:18 Acetaminophen (Tylenol Tab) 650 mg Q4H PRN PO 06/20/17 18:15 07/20/17 18:14 Ondansetron HCl (Zofran Inj) 4 mg Q6H PRN IV 06/20/17 18:15 07/20/17 18:14 Miscellaneous (Iv Fluids Completed) 1 ea PRN PRN N/A 06/20/17 20:45 06/20/18 20:44 Clindamycin Phosphate 900 mg/ Dextrose 50 ml @ 100 mls/hr Q8H IV 06/21/17 00:00 07/01/17 00:00 06/21/17 08:17 100 MLS/HR Vancomycin HCl 1750 mg/Sodium Chloride 535 ml @ 200 mls/hr Q8H IV 06/21/17 02:00 07/01/17 01:59 06/21/17 09:11 200 MLS/HR Vancomycin HCl (Consult) 1 ea UD PRN N/A 06/20/17 21:30 07/20/17 21:29 Ketorolac Tromethamine (Toradol Inj) 30 mg Q6H IV. 06/21/17 08:00 06/26/17 07:59 06/21/17 08:17 30 MG Aztreonam (Consult) 1 ea UD PRN N/A 06/21/17 10:38 07/21/17 10:37 Lactobacillus Acidophilus (Floranex Tab) 4 tab TIDM PO 06/21/17 12:30 07/21/17 12:29 06/21/17 12:38 4 TAB Sodium Chloride 1,000 ml @ 60 mls/hr [id number] IV 06/21/17 10:30 07/21/17 10:29 06/21/17 10:30 60 MLS/HR Aztreonam 1000 mg/ Dextrose 110 ml @ 110 mls/hr Q8H IV 06/21/17 12:00 07/01/17 11:59 06/21/17 12:38 110 MLS/HR Review of Systems Constitutional: No fever, No chills Eyes: No problem reported ENT: No problem reported Respiratory: No problem reported Cardiovascular: No problem reported Abdomen: No problem reported Musculoskeletal: + swelling Genitourinary - Male: No problem reported Neurologic: No problem reported Psychiatric: No problem reported Endocrine: No problem reported Hematologic / Lymphatic: No problem reported Integumentary: + new/changing skin lesions Allergic / Immunologic: No problem reported Physical Exam Date Time Temp Pulse Resp B/P (MAP) Pulse Ox O2 Delivery O2 Flow Rate FiO2 06/21/17 08:00 Room Air 06/21/17 07:41 36.7 68 18 140/84 (102) 97 Room Air 06/21/17 00:23 Room Air 06/20/17 22:42 36.7 66 18 147/90 (109) 97 Room Air 06/20/17 21:15 36.8 74 12 134/88 Room Air 06/20/17 21:15 36.8 74 12 134/88 (103) 98 Room Air 06/20/17 21:15 Room Air 06/20/17 20:32 68 18 132/88 98 Room Air 06/20/17 19:15 80 18 140/101 97 Room Air 06/20/17 17:37 78 20 134/89 100 Room Air 06/20/17 15:41 70 14 134/89 98 Room Air 06/20/17 14:00 36.8 78 18 137/96 97 Room Air General Appearance: WD/WN, no apparent distress Head: normocephalic, atraumatic Eyes: normal inspection, EOMI, sclerae normal ENT: normal ENT inspection, pharynx normal Neck: supple, no adenopathy, thyroid normal, trachea midline Respiratory/Chest: chest non-tender, lungs clear, normal breath sounds, no respiratory distress Cardiovascular: regular rate, rhythm, no gallop, no murmur Abdomen/GI: normal bowel sounds, non tender, soft, no organomegaly Back: normal inspection, no CVA tenderness Extremities/Musculoskelatal: no calf tenderness, normal capillary refill, + pertinent finding (left dorsal hand swelling, small area of crepitus) Neurologic/Psych: alert, oriented x 3 Skin: normal color, no rash, + pertinent finding (No significant left hand erythema) Lymphatic: no adenopathy Laboratory Results Date/Time Source Procedure Growth Status 06/20/17 15:17 Blood Blood Culture Pending Received 06/20/17 15:11 Blood Blood Culture Pending Received Last 24 Hours Test 06/20/17 14:30 06/20/17 20:06 06/21/17 07:42 06/21/17 10:56 White Blood Count 8.26 K/uL 7.64 K/uL 5.30 K/uL Red Blood Count 5.11 M/uL 4.80 M/uL 4.77 M/uL Hemoglobin 15.3 g/dL 14.3 g/dL 14.1 g/dL Hematocrit 43.9 % 41.2 % 41.2 % Mean Corpuscular Volume 85.9 fL 85.8 fL 86.4 fL Mean Corpuscular Hemoglobin 29.9 pg 29.8 pg 29.6 pg Mean Corpuscular Hemoglobin Concent 34.9 g/dl 34.7 g/dl 34.2 g/dl Platelet Count 213 K/uL 189 K/uL 190 K/uL Mean Platelet Volume 10.1 fL 10.3 fL 10.2 fL Neutrophils (%) (Auto) 70.0 % 58.4 % Lymphocytes (%) (Auto) 20.8 % 27.4 % Monocytes (%) (Auto) 8.4 % 13.0 % Eosinophils (%) (Auto) 0.6 % 0.8 % Basophils (%) (Auto) 0.1 % 0.2 % Neutrophils # (Auto) 5.78 K/uL 3.10 K/uL Lymphocytes # (Auto) 1.72 K/uL 1.45 K/uL Monocytes # (Auto) 0.69 K/uL 0.69 K/uL Eosinophils # (Auto) 0.05 K/uL 0.04 K/uL Basophils # (Auto) 0.01 K/uL 0.01 K/uL RDW Standard Deviation 40.1 fL 39.7 fL 40.8 fL RDW Coefficient of Variation 12.7 % 12.7 % 12.8 % Immature Granulocyte % (Auto) 0.1 % 0.2 % Immature Granulocyte # (Auto) 0.01 K/uL 0.01 K/uL Sodium Level 138 mmol/L 138 mmol/L 139 mmol/L Potassium Level 3.8 mmol/L 3.6 mmol/L 4.2 mmol/L Chloride Level 104 mmol/L 104 mmol/L 107 mmol/L Carbon Dioxide Level 31 mmol/L 25 mmol/L 27 mmol/L Anion Gap 3.0 mmol/L 9.0 mmol/L 5.0 mmol/L Blood Urea Nitrogen 18 mg/dl 16 mg/dl 14 mg/dl Creatinine 1.18 mg/dl 1.00 mg/dl 1.00 mg/dl Est Creatinine Clear Calc Drug Dose 105.2 ml/min 124.2 ml/min 124.2 ml/min Estimated GFR () 90.8 110.9 110.9 Estimated GFR (Non- 78.4 95.7 95.7 BUN/Creatinine Ratio 14.9 15.8 13.9 Random Glucose 112 mg/dl 88 mg/dl 93 mg/dl Calcium Level 10.2 mg/dl 9.8 mg/dl 9.4 mg/dl Erythrocyte Sedimentation Rate 9 mm/hr C-Reactive Protein < 0.29 mg/dl Patient Name: LORRI ROD Unit Number: [id number] Dictated: 06/20/171600 Transcribed: 06/20/171600 [facility] Printed Date/Time: [~ rep prt dt]/[~ rep prt tm] [~ rep ct labl] - [~ rep ct ivnm] [facility] [place] [address] Dictated: 06/20/171600 Transcribed: 06/20/171600 [facility] Printed Date/Time: [~ rep prt dt]/[~ rep prt tm] [~ rep ct labl] - [~ rep ct ivnm] [~ rep ct add3]] LEFT HAND CT WITH INTRAVENOUS CONTRAST CLINICAL HISTORY: L hand swelling cut on 2nd MCP joint COMPARISON STUDY: None. FINDINGS: Extensive soft tissue gas along the dorsum of the hand which extends along the proximal third and fourth fingers as well as into the dorsum of the wrist. Focal area of subcutaneous edema at the dorsum of the second MCP joint which favors the site of laceration. Tiny focus of gas along the volar aspect of the fourth MCP joint. No loculated fluid collections to suggest an abscess at this time. No areas of cortical destruction to suggest osteomyelitis. No fracture or dislocation within the hand. Gas also surrounds the dorsal tendons sheaths. IMPRESSION: Extensive soft tissue gas primary along the dorsum of the hand which extends from the wrist through the proximal third and fourth fingers. There is also a small focus of gas along the volar aspect of the fourth MCP joint. No loculated fluid collections to suggest an abscess. No areas of osteomyelitis identified. This gas is greater than expected for a laceration and therefore concerning for an infection from a gas forming organism (necrotizing fasciitis). Findings were discussed the patient's physician daycare assistant, Evelyn Hernadez, at 4:15 PM on 06/20/2017. Electronically signed by: Reed Calderon M.D. 06/20/2017 4:15 PM Dictated Date/Time: 06/20/2017 4:01 PM The status of this report is Signed. Draft = Not yet reviewed or approved by Radiologist. Signed = Reviewed and approved by Radiologist. <AttendingPhy></AttendingPhy> <FamilyPhy>No Doctor, Assigned</FamilyPhy> < PrimaryPhy>No Doctor, Assigned</PrimaryPhy> <UnitNumber>[id number]</UnitNumber> <VisitNumber>[id number]</VisitNumber> <PatientName>LORRI ROD</ PatientName> <DateOfBirth>1980</DateOfBirth> <Location>[facility]</Location> < ServiceDate>06/20/17</ServiceDate> <MNE>ESINDI</MNE> <OrderingPhy>Evelyn Hernadez PA-C</OrderingPhy> <OrderingPhyMNE>f rep ord dr campos</OrderingPhyMNE> < DictatingPhyMNE>f rep dict dr campos</DictatingPhyMNE> <CCListMNE>f rep ct yojanae</ CCListMNE> <AdmittingPhyMNE>f pt admit dr campos</AdmittingPhyMNE> <AttendingPhyMNE >f pt attend dr campos</AttendingPhyMNE> <ConsultingPhyMNE>f pt consult dr campos</ConsultingPhyMNE> <FamilyPhyMNE>f pt fam dr campos</FamilyPhyMNE> <OtherPhyMNE>f pt other dr campos</OtherPhyMNE> < PrimaryPhyMNE>f pt prim care dr campos</PrimaryPhyMNE> <ReferringPhyMNE>f pt referring dr campos</ReferringPhyMNE> Assessment & Plan Left hand infection following deep laceration, no obvious progression thus far to suggest need for urgent surgical intervention. Would continue IV antibiotics today and will consider transition to oral Rx tomorrow if improved. Will follow.
[2017-06-21 15:42] VITALS: BP 126/85; PULSE 68; TEMP 36.7; O2SAT 97
[2017-06-21] MEDS ORDERED: VANCOMYCIN TROUGH ONE (17:30)
--- NOTE | 2017-06-21 20:03 | Pharmacy Progress Note ---
Pharmacy Abx Dose Short Note Date of Service Jun 21, 2017. Assessment & Plan Assessment * 36 year old male receiving VANCOMYCIN and AZTREONAM IV for treatment of L hand cellulitis following 2 MTP laceration * Day # 2 of antimicrobial therapy * Patient remains afebrile, no chills reported, no leukocytosis noted on labs * No signs of necrotizing fasciitis per provider's assessments; CRP not elevated * Renal fxn stable Plan Vancomycin * Trough level of 13.1 mcg/mL is therapeutic. Level was drawn at the appropriate time, prior doses hung on time as well. This level is not reflective of steady-state however as it was drawn after only 2 maintenance doses. Would expect the level to climb with repeat dosing. Will recheck trough level in 24 hrs at steady-state. * Continue dose of 1750 mg IV every 8 hours for the time being * Goal trough level for cellulitis : 10 to 20 mcg/mL * Trough level ordered for: 06/22/17 Aztreonam * Continue 1gm IV Q 8 hours Pharmacy will continue to follow and will adjust dose/frequency as necessary. Thank you.
[2017-06-22] MEDS: VANCOMYCIN INJ 1,750 MG in SODIUM CHLORIDE 0.9% 500ML 500 ML IV SCH ×3 (02:06→17:55)
[2017-06-22] MEDS: KETOROLAC TROMETHAMINE 30 MG/ML VIAL IV. SCH ×3 (02:06→14:00)
[2017-06-22] MEDS: AZTREONAM IV 1,000 MG in DEXTROSE 5% 100ML IV SCH ×3 (05:00→22:46)
[2017-06-22 07:08] VITALS: BP 138/90; PULSE 62; TEMP 36.4; O2SAT 94
[2017-06-22] MEDS: CLINDAMYCIN IV 900 MG in DEXTROSE 5% 50ML 44 ML IV SCH ×3 (07:42→23:48)
[2017-06-22 07:50] LABS: BASO % 0.4 %; BASO ABS # 0.02 K/uL (0-0.2); COMPLETE YES; EOS % 1.6 %; HEMATOCRIT 38.5 % (42-52); IG% 0.2 %; LYMPH % 26.4 %; LYMPH ABS # 1.46 K/uL (1.2-3.4); MEAN CELL VOLUME 87.1 fL (80-100); MEAN CORPUSCULAR HEMOGLOBIN 29.4 pg (25-34); MEAN CORPUSCULAR HGB CONC 33.8 g/dl (32-36); MEAN PLATELET VOLUME 10.4 fL (7.4-10.4); MONO % 12.5 %; NEUT % 58.9 %; PLATELET COUNT 169 K/uL (130-400); RED BLOOD COUNT 4.42 M/uL (4.7-6.1); WHITE BLOOD COUNT 5.53 K/uL (4.8-10.8)
[2017-06-22 08:22] LABS: BUN/CREATININE RATIO 13.8 (10-20); CALCIUM 9.4 mg/dl (8.5-10.1); CREATININE 0.87 mg/dl (0.60-1.40); POTASSIUM 3.8 mmol/L (3.5-5.1)
[2017-06-22] MEDS: LACTOBACILLUS ACIDOPHILUS (FLORANEX) TAB PO SCH ×3 (09:04→17:55)
--- NOTE | 2017-06-22 09:55 | PROGRESS NOTE ---
DATE: 06/22/2017 DATE: 06/22/2017 SUBJECTIVE: A 36-year-old male admitted with a hand laceration and concerns of infection. He is doing about the same today. Pain seems to be a little bit less and a little bit less stiff. OBJECTIVE: VITAL SIGNS: Temperature 36.4. Vital signs stable. PHYSICAL EXAMINATION: GENERAL: Reveals a pleasant male who is sitting up at his bedside chair. EXTREMITIES: Examination of the hand reveals the laceration to be unchanged. There is no significant drainage. Looks like the scab is kind of dried up. He can flex and extend his fingers fully. Just a little tight with full flexion. There is no crepitance. There is no cellulitis. There are no signs of pus or purulence. He is neurologically intact. LABORATORY DATA: Sed rate is 9. White cell count is normal. His C-reactive protein is normal. ASSESSMENT: A 36-year-old male admitted with a left hand laceration concerns of infection. His sed rate and C-reactive protein are normal. There are no clinical signs of infection. The significant of this initial air on the soft tissues is unclear, but I do not think there are any signs of really even significant infection in this gentleman. PLAN: Once again, I would recommend he be discharged on oral antibiotics. Maybe 5-10 days would be plenty. Instructed him on some soaks. Any orthopedic questions can be directed to me at [phone]. I am going to sign off on this patient today.
[2017-06-22] MEDS: SODIUM CHLORIDE 0.9% 1000ML 1,000 ML IV SCH ×2 (13:45→22:46)
[2017-06-22 15:11] VITALS: BP 137/89; PULSE 65; TEMP 36.8; O2SAT 99
--- NOTE | 2017-06-22 17:28 | Progress Note ---
Medicine Progress Note Date & Time of Visit: Jun 22, 2017 at 17:28. Subjective seen resting in bed, comfortable having lunch, allowed me to interview/examine him states he feels fine overall left hand pain/swelling is improving as per patient can move all fingers, wrist with no problems denies other symptoms Objective Last 8 Hrs Date Time Temp Pulse Resp B/P (MAP) Pulse Ox O2 Delivery O2 Flow Rate FiO2 06/22/17 15:11 36.8 65 17 137/89 (105) 99 Room Air Physical Exam: General- oriented x 3, not in distress Eyes- anicteric Neck- supple, no JVD Lungs- clear breath sounds bilaterally Heart- regular rhythm; no murmur, normal rate Abdomen- normal bowel sounds, soft, nontender Extremities- Left Hand: (+) ~1cm wound on the 2nd MTP, scabbing- no discharge, with surrounding very mild edema, erythema, no warmth, no tenderness medial 1/2 of the hand dorsum, full ROM of fingers, wrist forearm normal no pretibial edema, no calf tenderness; peripheral pulses intact Neuro- alert, oriented x 3;no gross focal deficits Skin- warm & dry Laboratory Results: Last 24 Hours Test 06/21/17 17:40 06/22/17 07:10 06/22/17 17:23 Vancomycin Level Trough 13.1 mcg/ml White Blood Count 5.53 K/uL Red Blood Count 4.42 M/uL Hemoglobin 13.0 g/dL Hematocrit 38.5 % Mean Corpuscular Volume 87.1 fL Mean Corpuscular Hemoglobin 29.4 pg Mean Corpuscular Hemoglobin Concent 33.8 g/dl Platelet Count 169 K/uL Mean Platelet Volume 10.4 fL Neutrophils (%) (Auto) 58.9 % Lymphocytes (%) (Auto) 26.4 % Monocytes (%) (Auto) 12.5 % Eosinophils (%) (Auto) 1.6 % Basophils (%) (Auto) 0.4 % Neutrophils # (Auto) 3.26 K/uL Lymphocytes # (Auto) 1.46 K/uL Monocytes # (Auto) 0.69 K/uL Eosinophils # (Auto) 0.09 K/uL Basophils # (Auto) 0.02 K/uL RDW Standard Deviation 41.1 fL RDW Coefficient of Variation 12.8 % Immature Granulocyte % (Auto) 0.2 % Immature Granulocyte # (Auto) 0.01 K/uL Sodium Level 141 mmol/L Potassium Level 3.8 mmol/L Chloride Level 110 mmol/L Carbon Dioxide Level 24 mmol/L Anion Gap 7.0 mmol/L Blood Urea Nitrogen 12 mg/dl Creatinine 0.87 mg/dl Est Creatinine Clear Calc Drug Dose 142.7 ml/min Estimated GFR () 127.8 Estimated GFR (Non- 110.3 BUN/Creatinine Ratio 13.8 Random Glucose 88 mg/dl Calcium Level 9.4 mg/dl Assessment & Plan LEFT HAND CELLULITIS, 2ND MTP WOUND - CT of the extremity: possible necrotizing fasciitis - Dr. Montenegro- Ortho consulted impression is hand cellulitis, necrotizing fasciitis unlikely - remains afebrile CBC no leukocytosis ESR, CRP normal Blood culture no growth so far - overall, clinically improving continue Vanco + Clinda + Aztreonam Day 3/ ID consulted monitor closely - Toradol PRN for pain - appreciate Dr. Montenegro's and Dr. Pool's recommendations DVT Proph ambulation encouraged , SCDs Full Code Disposition anticipate d/c tomorrow if left hand continue to improves needs to establish with PCP in [place] Current Inpatient Medications: Current Inpatient Medications Medications (Trade) Dose Ordered Sig/Jazz Route Start Time Stop Time Status Last Admin Dose Admin Clindamycin Phosphate (Consult) 1 ea DAILY PRN N/A 06/20/17 21:19 07/20/17 21:18 Acetaminophen (Tylenol Tab) 650 mg Q4H PRN PO 06/20/17 18:15 07/20/17 18:14 Ondansetron HCl (Zofran Inj) 4 mg Q6H PRN IV 06/20/17 18:15 07/20/17 18:14 Miscellaneous (Iv Fluids Completed) 1 ea PRN PRN N/A 06/20/17 20:45 06/20/18 20:44 Clindamycin Phosphate 900 mg/ Dextrose 50 ml @ 100 mls/hr Q8H IV 06/21/17 00:00 07/01/17 00:00 06/22/17 16:34 100 MLS/HR Vancomycin HCl 1750 mg/Sodium Chloride 535 ml @ 200 mls/hr Q8H IV 06/21/17 02:00 07/01/17 01:59 06/22/17 11:05 200 MLS/HR Vancomycin HCl (Consult) 1 ea UD PRN N/A 06/20/17 21:30 07/20/17 21:29 Ketorolac Tromethamine (Toradol Inj) 30 mg Q6H IV. 06/21/17 08:00 06/26/17 07:59 06/22/17 07:42 30 MG Aztreonam (Consult) 1 ea UD PRN N/A 06/21/17 10:38 07/21/17 10:37 Lactobacillus Acidophilus (Floranex Tab) 4 tab TIDM PO 06/21/17 12:30 07/21/17 12:29 06/22/17 12:37 4 TAB Sodium Chloride 1,000 ml @ 60 mls/hr [id number] IV 06/21/17 10:30 07/21/17 10:29 06/21/17 10:30 60 MLS/HR Aztreonam 1000 mg/ Dextrose 110 ml @ 110 mls/hr Q8H IV 06/21/17 12:00 07/01/17 11:59 06/22/17 14:01 110 MLS/HR
[2017-06-22] MEDS ORDERED: VANCOMYCIN TROUGH ONE (17:30)
[2017-06-22] MEDS ORDERED: KETOROLAC TROMETHAMINE 30 MG/ML VIAL IV. PRN (20:00)
[2017-06-22 22:59] VITALS: BP 122/84; PULSE 62; TEMP 36.7; O2SAT 98
[2017-06-23] MEDS: VANCOMYCIN INJ 1,750 MG in SODIUM CHLORIDE 0.9% 500ML 500 ML IV SCH ×2 (01:19→10:00)
[2017-06-23] MEDS: AZTREONAM IV 1,000 MG in DEXTROSE 5% 100ML IV SCH (04:32)
[2017-06-23 06:33] LABS: BASO % 0.2 %; BASO ABS # 0.01 K/uL (0-0.2); COMPLETE YES; EOS % 1.9 %; HEMATOCRIT 39.4 % (42-52); IG% 0.2 %; LYMPH % 31.6 %; LYMPH ABS # 1.69 K/uL (1.2-3.4); MEAN CELL VOLUME 86.2 fL (80-100); MEAN CORPUSCULAR HEMOGLOBIN 29.8 pg (25-34); MEAN CORPUSCULAR HGB CONC 34.5 g/dl (32-36); MEAN PLATELET VOLUME 10.7 fL (7.4-10.4); MONO % 10.1 %; PLATELET COUNT 185 K/uL (130-400); RED BLOOD COUNT 4.57 M/uL (4.7-6.1); WHITE BLOOD COUNT 5.35 K/uL (4.8-10.8)
[2017-06-23 07:04] LABS: BUN/CREATININE RATIO 9.4 (10-20); CALCIUM 8.9 mg/dl (8.5-10.1); CREATININE 0.88 mg/dl (0.60-1.40); POTASSIUM 3.4 mmol/L (3.5-5.1)
[2017-06-23 07:56] VITALS: BP 128/78; PULSE 64; TEMP 36.5; O2SAT 97
[2017-06-23] MEDS: CLINDAMYCIN IV 900 MG in DEXTROSE 5% 50ML 44 ML IV SCH (08:20)
[2017-06-23] MEDS: LACTOBACILLUS ACIDOPHILUS (FLORANEX) TAB PO SCH (08:20)
[2017-06-23 08:25] VITALS: O2SAT 97
[2017-06-23] MEDS ORDERED: POTASSIUM CHLORIDE 20 MEQ TABCR PO ONE (08:30)
--- NOTE | 2017-06-23 09:23 | Progress Note ---
Medicine Progress Note Date & Time of Visit: Jun 23, 2017 at 09:19. Subjective seen resting in chair, comfortable, in good spirits states he feels well overall left hand continues to improve pain has resolved, can move all fingers and hand better denies fever/chills no problems with urination/BM, dizziness, chest pain, palpitations, abdominal denies other symptoms pleased with the improvement of his hand states he is ready and would like to be discharged today Objective Last 8 Hrs Date Time Temp Pulse Resp B/P (MAP) Pulse Ox O2 Delivery O2 Flow Rate FiO2 06/23/17 08:25 97 Room Air 06/23/17 07:56 36.5 64 16 128/78 (95) 97 Room Air Physical Exam: General- oriented x 3, not in distress Eyes- anicteric Neck- supple, no JVD Lungs- clear breath sounds bilaterally Heart- regular rhythm; no murmur, normal rate Abdomen- normal bowel sounds, soft, nontender Extremities- Left Hand: (+) ~1cm wound on the 2nd MTP, scabbing- no discharge/ bleeding, no edema, no erythema, no warmth, no tenderness medial 1/2 of the hand dorsum, full ROM of fingers, wrist forearm normal no pretibial edema, no calf tenderness; peripheral pulses intact Neuro- alert, oriented x 3;no gross focal deficits Skin- warm & dry Laboratory Results: Last 24 Hours Test 06/22/17 17:23 06/23/17 05:51 Vancomycin Level Trough 17.3 mcg/ml White Blood Count 5.35 K/uL Red Blood Count 4.57 M/uL Hemoglobin 13.6 g/dL Hematocrit 39.4 % Mean Corpuscular Volume 86.2 fL Mean Corpuscular Hemoglobin 29.8 pg Mean Corpuscular Hemoglobin Concent 34.5 g/dl Platelet Count 185 K/uL Mean Platelet Volume 10.7 fL Neutrophils (%) (Auto) 56.0 % Lymphocytes (%) (Auto) 31.6 % Monocytes (%) (Auto) 10.1 % Eosinophils (%) (Auto) 1.9 % Basophils (%) (Auto) 0.2 % Neutrophils # (Auto) 3.00 K/uL Lymphocytes # (Auto) 1.69 K/uL Monocytes # (Auto) 0.54 K/uL Eosinophils # (Auto) 0.10 K/uL Basophils # (Auto) 0.01 K/uL RDW Standard Deviation 40.4 fL RDW Coefficient of Variation 12.8 % Immature Granulocyte % (Auto) 0.2 % Immature Granulocyte # (Auto) 0.01 K/uL Sodium Level 142 mmol/L Potassium Level 3.4 mmol/L Chloride Level 109 mmol/L Carbon Dioxide Level 24 mmol/L Anion Gap 10.0 mmol/L Blood Urea Nitrogen 8 mg/dl Creatinine 0.88 mg/dl Est Creatinine Clear Calc Drug Dose 141.1 ml/min Estimated GFR () 127.2 Estimated GFR (Non- 109.7 BUN/Creatinine Ratio 9.4 Random Glucose 136 mg/dl Calcium Level 8.9 mg/dl Assessment & Plan LEFT HAND CELLULITIS, 2ND MTP WOUND - CT of the extremity: possible necrotizing fasciitis - Dr. Montenegro- Ortho consulted impression is hand cellulitis, necrotizing fasciitis unlikely - remained afebrile CBC no leukocytosis ESR, CRP normal Blood culture no growth so far - given Vanco + Clinda + Aztreonam x 3 days - Toradol PRN for pain ID consulted, Dr. Pool - overall, hand has significantly improved - d/c on: Levaquin 500mg daily x 7 days to complete 10 day therapy Clindamycin 300mg po QID x 7 days to complete 10 day therapy advised to daily wound care, do not return to work until cleared by PCP advised signs to watch out for including increasing swelling, pain, redness, discharge, fever and call PCP/ return to ER immediately if present advised to take daily yogurt/probiotic, increase fluid intake patient verbalized understanding and agreement, comfortable with plan of care , all questions answered DVT Proph ambulation encouraged , SCDs Full Code Disposition d/c home today ff up with Dr. Daniel tomorrow 06/24/17 Current Inpatient Medications: Current Inpatient Medications Medications (Trade) Dose Ordered Sig/Jazz Route Start Time Stop Time Status Last Admin Dose Admin Clindamycin Phosphate (Consult) 1 ea DAILY PRN N/A 06/20/17 21:19 07/20/17 21:18 Acetaminophen (Tylenol Tab) 650 mg Q4H PRN PO 06/20/17 18:15 07/20/17 18:14 Ondansetron HCl (Zofran Inj) 4 mg Q6H PRN IV 06/20/17 18:15 07/20/17 18:14 Miscellaneous (Iv Fluids Completed) 1 ea PRN PRN N/A 06/20/17 20:45 06/20/18 20:44 Clindamycin Phosphate 900 mg/ Dextrose 50 ml @ 100 mls/hr Q8H IV 06/21/17 00:00 07/01/17 00:00 06/23/17 08:20 100 MLS/HR Vancomycin HCl 1750 mg/Sodium Chloride 535 ml @ 200 mls/hr Q8H IV 06/21/17 02:00 07/01/17 01:59 06/23/17 01:19 200 MLS/HR Vancomycin HCl (Consult) 1 ea UD PRN N/A 06/20/17 21:30 07/20/17 21:29 Aztreonam (Consult) 1 ea UD PRN N/A 06/21/17 10:38 07/21/17 10:37 Lactobacillus Acidophilus (Floranex Tab) 4 tab TIDM PO 06/21/17 12:30 07/21/17 12:29 06/23/17 08:20 4 TAB Sodium Chloride 1,000 ml @ 60 mls/hr [id number] IV 06/21/17 10:30 07/21/17 10:29 06/22/17 22:46 60 MLS/HR Aztreonam 1000 mg/ Dextrose 110 ml @ 110 mls/hr Q8H IV 06/21/17 12:00 07/01/17 11:59 06/23/17 04:32 110 MLS/HR Ketorolac Tromethamine (Toradol Inj) 30 mg Q6H PRN IV. 06/22/17 20:00 06/26/17 07:59
[2017-06-23] MEDS ORDERED: LEVO1TAB34 PO (09:34)
[2017-06-23] MEDS ORDERED: CLIN300C10 PO (09:34)
--- NOTE | 2017-06-23 09:39 | Discharge Instructions ---
Discharge Instructions Date of Service Jun 23, 2017. Admission Reason for Admission: Cellulitis Of Left Hand Discharge Discharge Diagnosis / Problem: LEFT HAND INFECTED WOUND AND CELLULITIS Discharge Goals Goal(s): Diagnostic testing, Therapeutic intervention Activity Recommendations Activity Limitations: resume your previous activity Lifting Limitations: until after follow-up appointment (NO LIFTING ON THE LEFT HAND) Exercise/Sports Limitations: until after follow-up appointment Shower/Bathe: keep incision dry (KEEP WOUND DRY) SEE PRIMARY CARE PHYSICIAN FIRST TOMORROW 06/23/17 BEFORE RETURNING TO WORK . Instructions / Follow-Up Instructions / Follow-Up PLEASE REVIEW YOUR NEW MEDICATIONS AND FOLLOW INSTRUCTIONS CAREFULLY. TAKE YOGURT OR PROBIOTIC DAILY AND AT LEAST 1 WEEK AFTER YOUR ANTIBIOTIC COURSE. DRINK PLENTY OF FLUIDS. CALL PRIMARY CARE PHYSICIAN OR RETURN TO ER IMMEDIATELY IF WITH INCREASING HAND SWELLING/REDNESS/DISCHARGE/PAIN, NON HEALING WOUND, FEVER/CHILLS, DIARRHEA. FOLLOW UP WITH PRIMARY CARE PHYSICIAN FAISAL JUNE ON 06/24/17Friday AT 10: 45AM AT THE [facility]. Address: [address] [place] [address] Current Hospital Diet Patient's current hospital diet: Regular Diet Discharge Diet Recommended Diet: Regular Diet Procedures Procedures Performed: CT SCAN OF THE UPPER EXTREMITY Pending Studies Studies pending at discharge: no Work Instructions Return To Work: after follow-up Medical Emergencies . Who to Call and When: Medical Emergencies: If at any time you feel your situation is an emergency, please call 911 immediately. . Non-Emergent Contact Non-Emergency issues call your: Primary Care Provider Call Non-Emergent contact if: you have a fever, your pain is not controlled, your pain is worsening, wound has increased drainage, wound has increased redness, wound has increased pain, you have any medication questions . . "Provider Documentation" section prepared by Quinton Giordano. . VTE Core Measure Inpt VTE Proph given/why not?: Annalisa Lovett
--- NOTE | 2017-06-23 09:45 | Discharge Summary ---
Discharge Summary Date of Service Jun 23, 2017. Discharge Summary Admission Date: Jun 20, 2017 at 18:06 Discharge Date: Jun 23, 2017 Discharge Disposition: Home Principal Diagnosis: LEFT HAND CELLULITIS, INFECTED 2ND MCP WOUND Secondary Diagnoses/Problems: Please refer to hospital course below. Procedures: LEFT HAND CT WITH INTRAVENOUS CONTRAST CLINICAL HISTORY: L hand swelling cut on 2nd MCP joint COMPARISON STUDY: None. FINDINGS: Extensive soft tissue gas along the dorsum of the hand which extends along the proximal third and fourth fingers as well as into the dorsum of the wrist. Focal area of subcutaneous edema at the dorsum of the second MCP joint which favors the site of laceration. Tiny focus of gas along the volar aspect of the fourth MCP joint. No loculated fluid collections to suggest an abscess at this time. No areas of cortical destruction to suggest osteomyelitis. No fracture or dislocation within the hand. Gas also surrounds the dorsal tendons sheaths. IMPRESSION: Extensive soft tissue gas primary along the dorsum of the hand which extends from the wrist through the proximal third and fourth fingers. There is also a small focus of gas along the volar aspect of the fourth MCP joint. No loculated fluid collections to suggest an abscess. No areas of osteomyelitis identified. This gas is greater than expected for a laceration and therefore concerning for an infection from a gas forming organism (necrotizing fasciitis). Findings were discussed the patient's physician contact center assistant, Evelyn Hernadez, at 4:15 PM on 06/20/2017. L FOREARM 2 VIEWS ROUTINE CLINICAL HISTORY: Evaluate for necrotizing fasciitis. COMPARISON: CT of the left hand June 20, 2017 at 4:08 PM. FINDINGS: There is soft tissue gas along the distal medial shaft of the left ulna and dorsal aspect of the left hand. Similar findings were shown on CT from earlier today. There is no soft tissue gas within the proximal to mid left forearm. No evidence of osteomyelitis is identified within the left radius or ulna. There is no evidence for left elbow joint effusion. IMPRESSION: 1. Soft tissue gas of the dorsal aspect of the left hand extending into the distal left forearm, as shown on prior CT. No soft tissue gas within the proximal left forearm. While this gas could be related to the laceration, the findings are worrisome for a gas-forming infectious process with necrotizing fasciitis. 2. No evidence of osteomyelitis with the left radius or ulna. Consultations: Ortho Dr. Montenegro, ID Dr. Pool Pending Studies/Follow-Up: Please refer to hospital course below. Medication Reconciliation New Medications: Clindamycin Hcl (Clindamycin Hcl) 300 Mg Cap 1 CAP PO QID for 7 Days, #28 CAP 0 Refills Levofloxacin (Levaquin) 500 Mg Tab 500 MG PO DAILY for 7 Days, #7 TAB 0 Refills Admission Information HPI (per Admitting provider): This is a 36yo M with no known PMH who presents with a L hand injury sustained at work yesterday. 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 He then applied bacitracin and glued wound shut. This morning, patient noticed worsening redness, swelling and some purulent drainage. Patient cleaned the wound and went to work. Received a tdap immunization. Later in the day, started to have more significant pain with flexion of his fingers and decided to come to ER for evaluation. Describes pain as a tight pulling sensation and states that it feels like there is a "jelly packet" inside the dorsum of his hand. Endorses a crackling sound with movement. Denies any numbness/tingling of L hand or fingers. Denies any fever, chills, headache, CP, SOB, abd pain, nausea, vomiting, LE swelling. Physical Exam (per Admitting): General Appearance: WD/WN, no apparent distress Head: normocephalic, atraumatic Eyes: normal inspection, PERRL, sclerae normal (conjunctiva normal ) ENT: normal ENT inspection, hearing grossly normal, pharynx normal (moist mucous membranes ) Neck: supple, thyroid normal, trachea midline Respiratory/Chest: chest non-tender, lungs clear, normal breath sounds, no respiratory distress, no accessory muscle use Cardiovascular: regular rate, rhythm, no murmur, normal peripheral pulses Abdomen/GI: non tender, soft, no organomegaly Back: normal inspection Extremities/Musculoskelatal: no calf tenderness, no pedal edema, + pertinent finding (Dorsum of L hand with erythema and edema. Presence of a 2cm laceration without purulent drainage. TTP along 2nd-3rd MCP with associated crepitus. Sensation and motor function intact. ) Neurologic/Psych: no motor/sensory deficits, alert, normal mood/affect, oriented x 3 Skin: normal color, warm/dry Hospital Course LEFT HAND CELLULITIS, INFECTED 2ND MCP WOUND - CT of the extremity: possible necrotizing fasciitis - Dr. Montenegro- Ortho consulted impression is hand cellulitis, necrotizing fasciitis unlikely - remained afebrile CBC no leukocytosis ESR, CRP normal Blood culture no growth so far - given Vanco + Clinda + Aztreonam x 3 days - Toradol PRN for pain ID consulted, Dr. Pool - overall, hand has significantly improved - d/c on: Levaquin 500mg daily x 7 days to complete 10 day therapy Clindamycin 300mg po QID x 7 days to complete 10 day therapy advised to daily wound care, do not return to work until cleared by PCP advised signs to watch out for including increasing swelling, pain, redness, discharge, fever and call PCP/ return to ER immediately if present advised to take daily yogurt/probiotic, increase fluid intake patient verbalized understanding and agreement, comfortable with plan of care , all questions answered DVT Proph ambulation encouraged , SCDs Full Code Disposition d/c home today ff up with Dr. Daniel tomorrow 06/24/17 Total time spent on discharge = 30 minutes This includes examination of the patient, discharge planning, medication reconciliation, and communication with other providers. Discharge Instructions Discharge Instructions Date of Service Jun 23, 2017. Admission Reason for Admission: Cellulitis Of Left Hand Discharge Discharge Diagnosis / Problem: LEFT HAND INFECTED WOUND AND CELLULITIS Discharge Goals Goal(s): Diagnostic testing, Therapeutic intervention Activity Recommendations Activity Limitations: resume your previous activity Lifting Limitations: until after follow-up appointment (NO LIFTING ON THE LEFT HAND) Exercise/Sports Limitations: until after follow-up appointment Shower/Bathe: keep incision dry (KEEP WOUND DRY) SEE PRIMARY CARE PHYSICIAN FIRST TOMORROW 06/23/17 BEFORE RETURNING TO WORK . Instructions / Follow-Up Instructions / Follow-Up PLEASE REVIEW YOUR NEW MEDICATIONS AND FOLLOW INSTRUCTIONS CAREFULLY. TAKE YOGURT OR PROBIOTIC DAILY AND AT LEAST 1 WEEK AFTER YOUR ANTIBIOTIC COURSE. DRINK PLENTY OF FLUIDS. CALL PRIMARY CARE PHYSICIAN OR RETURN TO ER IMMEDIATELY IF WITH INCREASING HAND SWELLING/REDNESS/DISCHARGE/PAIN, NON HEALING WOUND, FEVER/CHILLS, DIARRHEA. FOLLOW UP WITH PRIMARY CARE PHYSICIAN FAISAL JUNE ON 06/24/17Friday AT 10: 45AM AT [facility]. Address: [address] [place] [id number] Current Hospital Diet Patient's current hospital diet: Regular Diet Discharge Diet Recommended Diet: Regular Diet Procedures Procedures Performed: CT SCAN OF THE UPPER EXTREMITY Pending Studies Studies pending at discharge: no Work Instructions Return To Work: after follow-up Medical Emergencies . Who to Call and When: Medical Emergencies: If at any time you feel your situation is an emergency, please call 911 immediately. . Non-Emergent Contact Non-Emergency issues call your: Primary Care Provider Call Non-Emergent contact if: you have a fever, your pain is not controlled, your pain is worsening, wound has increased drainage, wound has increased redness, wound has increased pain, you have any medication questions . . "Provider Documentation" section prepared by Quinton Giordano. . VTE Core Measure Inpt VTE Proph given/why not?: Annalisa Lovett
[2017-06-23 10:41] VITALS: BP 128/78; PULSE 64; TEMP 36.5; O2SAT 97
--- NOTE | 2017-06-23 11:24 | Infectious Disease Progress Nt ---
Progress Note Date of Service Jun 23, 2017. Subjective Pt evaluation today including: conversation w/ patient, physical exam, chart review, lab review, review of studies, conversation w/ bus info consultant, review of inpatient medication list Patient offering no new complaints today. Pain in hands better. No fever or chills. Blood cultures remain negative. All Other Systems: Reviewed and Negative Medications Current Inpatient Medications Medications (Trade) Dose Ordered Sig/Jazz Route Start Time Stop Time Status Last Admin Dose Admin Clindamycin Phosphate (Consult) 1 ea DAILY PRN N/A 06/20/17 21:19 07/20/17 21:18 Acetaminophen (Tylenol Tab) 650 mg Q4H PRN PO 06/20/17 18:15 07/20/17 18:14 Ondansetron HCl (Zofran Inj) 4 mg Q6H PRN IV 06/20/17 18:15 07/20/17 18:14 Miscellaneous (Iv Fluids Completed) 1 ea PRN PRN N/A 06/20/17 20:45 06/20/18 20:44 Clindamycin Phosphate 900 mg/ Dextrose 50 ml @ 100 mls/hr Q8H IV 06/21/17 00:00 07/01/17 00:00 06/23/17 08:20 100 MLS/HR Vancomycin HCl 1750 mg/Sodium Chloride 535 ml @ 200 mls/hr Q8H IV 06/21/17 02:00 07/01/17 01:59 06/23/17 01:19 200 MLS/HR Vancomycin HCl (Consult) 1 ea UD PRN N/A 06/20/17 21:30 07/20/17 21:29 Aztreonam (Consult) 1 ea UD PRN N/A 06/21/17 10:38 07/21/17 10:37 Lactobacillus Acidophilus (Floranex Tab) 4 tab TIDM PO 06/21/17 12:30 07/21/17 12:29 06/23/17 08:20 4 TAB Sodium Chloride 1,000 ml @ 60 mls/hr [id number] IV 06/21/17 10:30 07/21/17 10:29 06/22/17 22:46 60 MLS/HR Aztreonam 1000 mg/ Dextrose 110 ml @ 110 mls/hr Q8H IV 06/21/17 12:00 07/01/17 11:59 06/23/17 04:32 110 MLS/HR Ketorolac Tromethamine (Toradol Inj) 30 mg Q6H PRN IV. 06/22/17 20:00 06/26/17 07:59 Objective Vital Signs Date Time Temp Pulse Resp B/P (MAP) Pulse Ox O2 Delivery O2 Flow Rate FiO2 06/23/17 10:41 36.5 64 16 97 Room Air 06/23/17 08:25 97 Room Air 06/23/17 07:56 36.5 64 16 128/78 (95) 97 Room Air 06/23/17 07:30 Room Air 06/22/17 23:54 Room Air 06/22/17 22:59 36.7 62 16 122/84 (97) 98 Room Air 06/22/17 16:30 Room Air 06/22/17 15:11 36.8 65 17 137/89 (105) 99 Room Air Physical Exam General Appearance: WD/WN, no apparent distress Eyes: normal inspection, EOMI, sclerae normal ENT: normal ENT inspection, hearing grossly normal, pharynx normal Neck: supple, no adenopathy, thyroid normal, trachea midline Respiratory/Chest: chest non-tender, lungs clear, normal breath sounds, no respiratory distress Cardiovascular: regular rate, rhythm, no gallop, no murmur Abdomen: normal bowel sounds, non tender, soft, no organomegaly Extremities: non-tender, no calf tenderness, + pertinent finding (Left hand swelling improving, less tenderness, no crepitus) Neurologic/Psychiatric: alert, oriented x 3 Skin: normal color, no rash Lymphatic: no adenopathy Laboratory Results RUN DATE: 06/22/17 [facility] LAB PAGE 1 RUN TIME: 0740 Specimen Inquiry PATIENT: LORRI ROD LOC: [facility] U # : [id number] AGE/SX: 36/M ROOM: 87 REG : 06/20/[address]: Quinton Giordano MD : [id number] BED: 2 DIS : STATUS: ADM Jodi TLOC: SPEC #: [id number] ASHLEY: 06/20/17 STATUS: RES REQ #: [id number] RECD: 06/20/[address]: Evelyn Hernadez PA-C SOURCE: BLOOD ENTR: 06/20/[address]: Cheryl Morfin, Assigned SPDESC: Rae Ewing DO ORDERED: BLOOD CULTURE Procedure Result Verified Site BLD CULT Preliminary 06/22/17-739 NO GROWTH TO DATE. Last 24 Hours Test 06/22/17 17:23 06/23/17 05:51 Vancomycin Level Trough 17.3 mcg/ml White Blood Count 5.35 K/uL Red Blood Count 4.57 M/uL Hemoglobin 13.6 g/dL Hematocrit 39.4 % Mean Corpuscular Volume 86.2 fL Mean Corpuscular Hemoglobin 29.8 pg Mean Corpuscular Hemoglobin Concent 34.5 g/dl Platelet Count 185 K/uL Mean Platelet Volume 10.7 fL Neutrophils (%) (Auto) 56.0 % Lymphocytes (%) (Auto) 31.6 % Monocytes (%) (Auto) 10.1 % Eosinophils (%) (Auto) 1.9 % Basophils (%) (Auto) 0.2 % Neutrophils # (Auto) 3.00 K/uL Lymphocytes # (Auto) 1.69 K/uL Monocytes # (Auto) 0.54 K/uL Eosinophils # (Auto) 0.10 K/uL Basophils # (Auto) 0.01 K/uL RDW Standard Deviation 40.4 fL RDW Coefficient of Variation 12.8 % Immature Granulocyte % (Auto) 0.2 % Immature Granulocyte # (Auto) 0.01 K/uL Sodium Level 142 mmol/L Potassium Level 3.4 mmol/L Chloride Level 109 mmol/L Carbon Dioxide Level 24 mmol/L Anion Gap 10.0 mmol/L Blood Urea Nitrogen 8 mg/dl Creatinine 0.88 mg/dl Est Creatinine Clear Calc Drug Dose 141.1 ml/min Estimated GFR () 127.2 Estimated GFR (Non- 109.7 BUN/Creatinine Ratio 9.4 Random Glucose 136 mg/dl Calcium Level 8.9 mg/dl Assessment and Plan Left hand infection following deep laceration, no obvious progression thus far to suggest need for urgent surgical intervention. As discussed with hospitalist service, patient be discharged on combination of levofloxacin and clindamycin for 7 more days.
== END 2017-06-23 12:22 | disposition home or self-care (01) ==
LOC: C.EDB 13:47 → C.MSN 18:06 → ENRESERV 18:15
PROVIDERS: ADMIT Hospitalist; ATTEND Internal Medicine
DX: S61.412A Laceration without foreign body of left hand, initial encounter (principal); L03.114 Cellulitis of left upper limb; W29.8XXA Contact with other powered hand tools and household machinery, initial encounter; Y99.0 Civilian activity done for income or pay; Z87.891 Personal history of nicotine dependence